=== PATIENT | female | born 2000 | race Caucasian/White ===

== ENCOUNTER 2025-08-29 09:08 | Outpatient (REF) | payer BC, SELFPAY ==
--- NOTE | ~2025-08-29 | US_ITS ---
EXAMINATION: US SOFT TISSUE NECK CLINICAL INFORMATION: Nodule left neck below the chin. COMPARISON: None available. TECHNIQUE: Linear transducer martinez-scale and color Doppler examination left neck was performed. FINDINGS: There is small submandibular lymph node visualized measuring 0.5 x 0.6 x 1.2 cm. It has a normal central echogenic texture and hypoechoic cortex with no increased vascularity on color ultrasound. The margins are smooth and well-defined. US/US soft tiss head and/or neck IMPRESSION: Benign-appearing 1.5 cm lymph node left submandibular space. Enlargement could be secondary to an underlying inflammatory process. This can be followed up in 3-6 months if pain persists. Electronically signed by: Cornel Moya MD 08/30/2025 07:47 AM EDT
== END 2025-08-29 09:09 | disposition home or self-care (01) ==
LOC: HO.UMASIMG 09:08
PROVIDERS: Visit Provider Family Medicine
DX: R59.9 Enlarged lymph nodes, unspecified (principal)
CPT/HCPCS: 76536

== ENCOUNTER → 2025-08-29 14:06 | Outpatient (BNV) | payer BC, SELFPAY | PROVIDERS: Visit Provider Radiology Diagnostic Radiology | DX: R59.0 Localized enlarged lymph nodes (principal) | CPT/HCPCS: 76536 ==